=== PATIENT | female | born 1945 | race Caucasian/White ===

== ENCOUNTER 2016-04-26 11:08 | Emergency (ER) | payer OTHER ==
[2016-04-26 12:40] VITALS: BP 178/65
--- NOTE | 2016-04-26 14:36 | UC ---
Throat Pain/Nasal [place] HPI - HPI Summary HPI Summary: sore throat and headache with sinus pressure for one day; no fever. Also has increasing erythema around the right eye since she developed a reaction to a silicon plug placed in the tear duct, requiring removal. - History of Current Complaint Chief Complaint: UCGeneralIllness Stated Complaint: SORE THROAT Time Seen by Provider: 04/26/16 14:05 Hx Obtained From: Patient Onset/Duration: Gradual Onset, Lasting Days - 2 Severity: Moderate Cough: None Associated Signs & Symptoms: Positive: Dysphagia, Sinus Discomfort - Epiglottits Risk Factors Epiglottis Risk Factors: Negative - Allergies/Home Medications Allergies/Adverse Reactions: Allergies Allergy/AdvReac Type Severity Reaction Status Date / Time Penicillins [PCN] Allergy Severe Hives/Diff. Verified 12/25/15 10:32 Breathing/I tching Latex Allergy SKIN ON Verified 12/25/15 10:32 HANDS SPLIT AND BLEED Silicone Allergy Swelling Verified 04/26/16 12:40 PMH/Surg Hx/FS Hx/Imm Hx - Additional Past Medical History Additional PMH: history of atrial fibrillation Cardiovascular History Of: Reports: Cardiac Disorders - svt, Hypertension Denies: Pacemaker/ICD Respiratory History Of: Denies: COPD, Asthma GI/ History Of: Reports: Gastroesophageal Reflux Other History Of: Anticoagulant Therapy - aspirin - Surgical History Surgical History: Yes Surgery Procedure, Year, and Place: 09/2011 LEFT KNEE ARTHROSCOPY WITH PARTIAL MEDIAL MENISCECTOMY, 01/2011 REMOVAL [place] TWO MASSES [place] [facility] [place]ER[place], [facility],2006 RIGHT KNEE MENISCUS, [facility] SCAR TISSUE REMOVED FROM LEFT LUNG, [facility]. 1973 HYSTERECTOMY, [facility]. 1992 TWO GANGLION REMOVED FROM LEFT HAND, [facility]. 02/25/2012 LEFT KNEE TOTAL REPLACEMENT, [facility] [place]. cardiac ablation 02/2014 - Family History Known Family History: Positive: Hypertension - Social History Occupation: Employed Full-time Lives: With Family - about to have open heart surgery in a couple of weeks. Alcohol Use: Rare Substance Use Type: None Smoking Status (MU): Former Smoker Type: Cigarettes When Did the Patient Quit Smoking/Using Tobacco: 1986 - Immunization History Most Recent Influenza Vaccination: 01/2014 Review of Systems Constitutional: Fatigue Skin: Negative Eyes: Other - periorbital swelling and erythema, very itchy, since removal of silicone plug which she reacted to. Using hot compresses. Area around right eye is becoming more tender. No diplopia, no eye drainage. ENT: Sore Throat Respiratory: Negative Cardiovascular: Negative Gastrointestinal: Negative Genitourinary: Negative Motor: Negative Neurovascular: Negative Musculoskeletal: Negative Neurological: Headache Psychological: Negative All Other Systems Reviewed And Are Negative: Yes Physical Exam Triage Information Reviewed: Yes Appearance: Ill-Appearing - looks mildly unwell, distressed due to length of wait. Vital Signs: Initial Vital Signs Temp 98.1 F 04/26/16 12:35 Pulse 51 04/26/16 12:35 Resp 16 04/26/16 12:35 BP 178/65 04/26/16 12:35 Pulse Ox 97 04/26/16 12:35 Eye Exam: Other - mild swelling and erythema extending 3 cm below the right eye. Mild upper lid swelling and erythema. Normal eye movements without pain Eyes: Positive: Conjunctiva Clear ENT: Positive: Pharyngeal erythema, TMs normal Neck: Positive: Supple, Nontender, No Lymphadenopathy Respiratory: Positive: Lungs clear, Normal breath sounds Cardiovascular: Positive: RRR, No Murmur Musculoskeletal Exam: Normal Neurological Exam: Normal Psychological Exam: Normal Skin Exam: Other - periorbital erythema Throat Pain/Nasal Course/Dx - Course Course Of Treatment: cephalexin for both early pre-septal cellulitis and possible bacterial sinusitis. Reviewed pen allergy, which she recalls as mild, possibly rash. - Differential Dx/Diagnosis Differential Diagnosis/HQI/PQRI: Influenza, Sinusitis, Tonsillitis, URI, Other Provider Diagnoses: right preseptal cellulitisl eye. sinusitis. Discharge - Discharge Plan Condition: Stable Disposition: HOME Prescriptions: Cephalexin CAP* [Keflex 500 CAP*] 500 mg PO TID #30 cap Patient Education Materials: Cellulitis (ED), Sinusitis (ED) Forms: *Work Release Referrals: Elliot Figueroa DO [Primary Care Provider] - Additional Instructions: You have been prescribed cephalexin, which will both treat a sinus infection and the infection around the right eye. If you develop rash, please stop taking the medication, and call regarding a change of antibiotics. Continue use of aspirin for headache. Follow up if you are not improving in 3 days, or if you develop a fever.
== END 2016-04-26 14:41 | disposition home or self-care (01) ==
LOC: UCCORT 11:08
DX: J32.9 Chronic sinusitis, unspecified (principal); L03.213 Periorbital cellulitis; I47.1 Supraventricular tachycardia; Z79.82 Long term (current) use of aspirin; I10 Essential (primary) hypertension; I48.91 Unspecified atrial fibrillation; K21.9 Gastro-esophageal reflux disease without esophagitis; Z87.891 Personal history of nicotine dependence; Z88.0 Allergy status to penicillin; Z91.040 Latex allergy status; Z91.048 Other nonmedicinal substance allergy status; Z96.652 Presence of left artificial knee joint
CPT/HCPCS: 99212; G0463

== ENCOUNTER 2016-10-27 12:23 | Emergency (ER) | payer OTHER ==
[2016-10-27 12:36] VITALS: BP 146/62
--- NOTE | 2016-10-27 12:54 | UC ---
Respiratory Complaint HPI - HPI Summary HPI Summary: Sob--Needed to sleep sitting up last night , has had a fluttering feeling in chest, no edema - History of Current Complaint Chief Complaint: UCRespiratory Stated Complaint: SOB,COUGH Time Seen by Provider: 10/27/16 12:34 Hx Obtained From: Patient ?: No Onset/Duration: Sudden Onset, Lasting Days - 1, Still Present Timing: Constant Severity Initially: Moderate Severity Currently: Moderate Character: Cough: Nonproductive Aggravating Factors: Recumbent Position Alleviating Factors: Upright Position Associated Signs And Symptoms: Positive: Dyspnea. Negative: Fever, Chills, Pleuritic Chest Pain, URI, Nasal Congestion, Hoarseness - Allergies/Home Medications Allergies/Adverse Reactions: Allergies Allergy/AdvReac Type Severity Reaction Status Date / Time Penicillins [PCN] Allergy Severe Hives/Diff. Verified 10/27/16 12:35 Breathing/I tching Latex Allergy SKIN ON Verified 10/27/16 12:35 HANDS SPLIT AND BLEED Silicone Allergy Swelling Verified 10/27/16 12:35 Home Medications: Home Medications Aspirin TAB* [Aspirin 325 MG TAB*] 325 mg PO DAILY 10/27/16 [History Confirmed 10/27/16] Coenzyme Q10 (Ubidecarenone) [Co-Enzyme Q10] 100 mg PO DAILY 10/27/16 [History Confirmed 10/27/16] Flecainide TAB* [Tambocor TAB*] 100 mg PO BID 10/27/16 [History Confirmed ] Levothyroxine TAB* [Synthroid TAB*] 25 mcg PO DAILY 10/27/16 [History Confirmed 10/27/16] Metoprolol Tartrate TAB* [Lopressor TAB*] 75 mg PO BID 10/27/16 [History Confirmed 10/27/16] Valsartan/HCTZ 160/25(NF) [Diovan Hct 160/25(NF)] 1 tab PO DAILY 10/27/16 [ History Confirmed 10/27/16] amLODIPine TAB* [Norvasc 5 mg TAB*] 5 mg PO BID 10/27/16 [History Confirmed 08/08] PMH/Surg Hx/FS Hx/Imm Hx Previously Healthy: No Endocrine History: Hypothyroidism Cardiovascular History: Cardiac Disease, Hypertension, Pacemaker/ICD Other History Of: Anticoagulant Therapy - aspirin - Surgical History Surgical History: Yes Surgery Procedure, Year, and Place: 09/2011 LEFT KNEE ARTHROSCOPY WITH PARTIAL MEDIAL MENISCECTOMY, 01/2011 REMOVAL OF TWO MASSES ON LEFT THUMB, [facility] [place] HEART CATHERIZATION, [facility],2006 RIGHT KNEE MENISCUS, [facility] SCAR TISSUE REMOVED FROM LEFT LUNG, [facility]. 1973 HYSTERECTOMY, [facility]. 1992 TWO GANGLION REMOVED FROM LEFT HAND, [facility]. 02/25/2012 LEFT KNEE TOTAL REPLACEMENT, [facility] [place]. cardiac ablation 02/2014 - Family History Known Family History: Positive: Hypertension - Social History Occupation: Employed Full-time Lives: With Family Alcohol Use: Rare Substance Use Type: None Smoking Status (MU): Former Smoker Type: Cigarettes When Did the Patient Quit Smoking/Using Tobacco: 1986 - Immunization History Most Recent Influenza Vaccination: 01/2014 Review of Systems Constitutional: Fatigue Skin: Negative Eyes: Negative ENT: Negative Respiratory: Shortness Of Breath Cardiovascular: Negative Gastrointestinal: Negative Genitourinary: Negative Motor: Negative Neurovascular: Negative Musculoskeletal: Negative Neurological: Negative Psychological: Negative All Other Systems Reviewed And Are Negative: Yes Physical Exam Triage Information Reviewed: Yes Appearance: Well-Nourished, Ill-Appearing, Pain Distress, Other: - does repot weight loss Vital Signs: Initial Vital Signs Temp 98 F 10/27/16 12:26 Pulse 62 10/27/16 12:26 Resp 18 10/27/16 12:26 BP 146/62 10/27/16 12:26 Pulse Ox 100 10/27/16 12:26 Vital Signs Reviewed: Yes Eye Exam: Normal Eyes: Positive: Conjunctiva Clear ENT Exam: Normal ENT: Positive: Normal ENT inspection, Hearing grossly normal, Pharynx normal, TMs normal. Negative: Nasal congestion, Nasal drainage, Tonsillar swelling, Tonsillar exudate, Trismus, Muffled/hoarse voice Dental Exam: Normal Neck exam: Normal Neck: Positive: Supple, Nontender, No Lymphadenopathy Respiratory Exam: Normal Respiratory: Positive: Chest non-tender, Lungs clear, Normal breath sounds, No respiratory distress, No accessory muscle use Cardiovascular Exam: Normal Cardiovascular: Positive: RRR, No Murmur, Pulses Normal, Brisk Capillary Refill Musculoskeletal Exam: Normal Musculoskeletal: Positive: Strength Intact, ROM Intact, No Edema Neurological Exam: Normal Neurological: Positive: Alert, Muscle Tone Normal Psychological Exam: Normal Psychological: Positive: Normal Response To Family Skin Exam: Normal UC Diagnostic Evaluation - Laboratory O2 Sat by Pulse Oximetry: 100 - EKG Cardiac Rate: NL Cardiac Rhythm: Other Rhythm: Normal - paced Ectopy: None Respiratory Course/Dx - Course Course Of Treatment: dischardeg--refused ambulance plan to follow immediatly at [facility] - Differential Dx/Diagnosis Differential Diagnosis/HQI/PQRI: CHF, Pulmonary Edema, Other - angina Provider Diagnoses: SoB Fatigue - Physician Notification/Consults Discussed Patient Care With: Navdeep Garcia Time Discussed With Above Provider: 13:00 Discharge - Discharge Plan Condition: Guarded Disposition: AGAINST MEDICAL ADVICE Patient Education Materials: Dyspnea (ED) Referrals: Elliot Figueroa DO [Primary Care Provider] - Additional Instructions: Please report directly to Hospital for higher level of care
== END 2016-10-27 13:09 | disposition left against medical advice (07) ==
LOC: UCCORT 12:23
DX: R06.02 Shortness of breath (principal); R53.83 Other fatigue; Z91.040 Latex allergy status; Z88.0 Allergy status to penicillin; Z91.048 Other nonmedicinal substance allergy status; Z79.82 Long term (current) use of aspirin; E03.9 Hypothyroidism, unspecified; I10 Essential (primary) hypertension; Z95.810 Presence of automatic (implantable) cardiac defibrillator; Z87.891 Personal history of nicotine dependence
CPT/HCPCS: 93005; 99213; G0463

== ENCOUNTER 2017-07-13 10:44 | Emergency (ER) | payer MEDICARE, OTHER ==
[2017-07-13 11:23] VITALS: BP 151/72
--- NOTE | 2017-07-13 11:51 | UC ---
Respiratory Complaint HPI - History of Current Complaint Chief Complaint: UCRespiratory Stated Complaint: upper respritory Time Seen by Provider: 07/13/17 11:28 Pain Intensity: 6 - Allergies/Home Medications Allergies/Adverse Reactions: Allergies Allergy/AdvReac Type Severity Reaction Status Date / Time latex Allergy Rash Verified 07/13/17 11:16 Penicillins Allergy Hives Verified 07/13/17 11:16 silicone Allergy Swelling Verified 07/13/17 11:16 Home Medications: Home Medications Lupus Medication 1 tab PO DAILY 07/13/17 [History] PMH/Surg Hx/FS Hx/Imm Hx - Additional Past Medical History Additional PMH: Lupus Endocrine History: Hypothyroidism Cardiovascular History: Hypertension Other History Of: Anticoagulant Therapy - aspirin - Surgical History Surgical History: Yes Surgery Procedure, Year, and Place: 09/2011 LEFT KNEE ARTHROSCOPY WITH PARTIAL MEDIAL MENISCECTOMY, 01/2011 REMOVAL OF TWO MASSES ON LEFT THUMB, [facility] [place] 2007 HEART CATHERIZATION, [facility],2006 RIGHT KNEE MENISCUS, [facility] SCAR TISSUE REMOVED FROM LEFT LUNG, [facility]. 1973 HYSTERECTOMY, [facility]. 1992 TWO GANGLION REMOVED FROM LEFT HAND, [facility]. 02/25/2012 LEFT KNEE TOTAL REPLACEMENT, [facility] [place]. cardiac ablation 02/2014 - Family History Known Family History: Positive: Hypertension - Social History Occupation: Retired Lives: With Family Alcohol Use: Rare Substance Use Type: None Smoking Status (MU): Former Smoker Type: Cigarettes When Did the Patient Quit Smoking/Using Tobacco: 1986 - Immunization History Most Recent Influenza Vaccination: 01/2014 Review of Systems Constitutional: Fever, Chills Respiratory: Cough Musculoskeletal: Myalgia Is Patient Immunocompromised?: No All Other Systems Reviewed And Are Negative: Yes Physical Exam Triage Information Reviewed: Yes Appearance: Well-Nourished, Ill-Appearing Vital Signs: Initial Vital Signs Temp 100.2 F 07/13/17 11:18 Pulse 96 07/13/17 11:18 Resp 20 07/13/17 11:18 BP 151/72 07/13/17 11:18 Pulse Ox 97 07/13/17 11:18 Vital Signs Reviewed: Yes Eyes: Positive: Conjunctiva Inflamed ENT: Positive: Pharynx normal, TMs normal Neck exam: Normal Respiratory: Positive: Lungs clear Cardiovascular Exam: Normal Musculoskeletal Exam: Normal Neurological Exam: Normal Psychological Exam: Normal Skin Exam: Normal UC Diagnostic Evaluation - Laboratory O2 Sat by Pulse Oximetry: 97 Respiratory Course/Dx - Differential Dx/Diagnosis Differential Diagnosis/HQI/PQRI: Exacerbation Of COPD, Influenza, Laryngitis, Lower Resp Infection Provider Diagnoses: Acute URI. Probable influenza Discharge - Sign-Out/Discharge Documenting (check all that apply): Discharge - Discharge Plan Condition: Stable Disposition: HOME Prescriptions: Oseltamivir CAP* [Tamiflu CAP*] 75 mg PO BID #10 cap Patient Education Materials: Influenza (ED), Oseltamivir (By mouth) Referrals: Too Munguia MD [Primary Care Provider] - - Billing Disposition and Condition Condition: STABLE Disposition: HOME
[2017-07-13] MEDS ORDERED: Ibuprofen TAB* 600 MG PO ONE (12:11)
== END 2017-07-13 12:25 | disposition home or self-care (01) ==
LOC: UCCORT 10:44
DX: J06.9 Acute upper respiratory infection, unspecified (principal); F17.210 Nicotine dependence, cigarettes, uncomplicated
CPT/HCPCS: 87502; 99212; A9270-GY; G0463

== ENCOUNTER 2018-10-07 10:44 | Emergency (ER) | payer MEDICARE ==
[2018-10-07 11:37] VITALS: BP 139/68
--- NOTE | 2018-10-07 12:09 | UC ---
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 Negative: Nausea, Vomiting, Numbness, Fever, Chills, Cough, Wheezing, Chest Pain, Lightheadedness, Drainage , Bruising, Tenderness, Red Streaks, Joint Swelling - Allergy/Home Medications Allergies/Adverse Reactions: Allergies Allergy/AdvReac Type Severity Reaction Status Date / Time adhesive Allergy Rash Verified 10/07/18 11:22 chlorhexidine Allergy Hives Verified 10/07/18 11:22 [From Hibiclens] latex Allergy Rash Verified 10/07/18 11:22 Penicillins Allergy Hives Verified 10/07/18 11:22 silicone Allergy Swelling Verified 10/07/18 11:22 vinyl Allergy Unknown rash, Uncoded 10/07/18 11:22 itching Home Medications: Home Medications Hydrocortisone 1% CREAM(NF) [Hytone Cream 1%*] 1 applic TOPICAL PRN 10/07/18 [ History] Valsartan TAB* [Diovan TAB*] 40 mg PO DAILY 10/07/18 [History Confirmed 10/07/18 ] PMH/Surg Hx/FS Hx/Imm Hx - Additional Past Medical History Additional PMH: lupus Cardiovascular History: Cardiac Disease, Hypertension, Pacemaker/ICD, Atrial Fibrillation GI/ History: Ulcer Other History Of: Anticoagulant Therapy - aspirin - Surgical History Surgical History: Yes Surgery Procedure, Year, and Place: 09/2011 LEFT KNEE ARTHROSCOPY WITH PARTIAL MEDIAL MENISCECTOMY, 01/2011 REMOVAL OF TWO MASSES ON LEFT THUMB, [facility] 2007 HEART CATHERIZATION, [facility],2006 RIGHT KNEE MENISCUS, [facility] SCAR TISSUE REMOVED FROM LEFT LUNG, [facility]. 1973 HYSTERECTOMY, [facility]. 1992 TWO GANGLION REMOVED FROM LEFT HAND, [facility]. 02/25/2012 LEFT KNEE TOTAL REPLACEMENT, [facility] [place]. cardiac ablation 02/2014. 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 ACDF, MAR 2018 - Family History Known Family History: Positive: Hypertension - Social History Alcohol Use: Rare Substance Use Type: None Smoking Status (MU): Former Smoker Type: Cigarettes When Did the Patient Quit Smoking/Using Tobacco: 1986 - Immunization History Most Recent Influenza Vaccination: 01/2014 Review of Systems All Other Systems Reviewed And Are Negative: Yes Constitutional: Positive: Negative Skin: Positive: Rash Eyes: Positive: Negative ENT: Positive: Negative Respiratory: Positive: Negative Is Patient Immunocompromised?: No Physical Exam Triage Information Reviewed: Yes Appearance: Well-Appearing, No Pain Distress, Well-Nourished Vital Signs: Initial Vital Signs Temp 98.6 F 10/07/18 11:27 Pulse 86 10/07/18 11:27 Resp 20 10/07/18 11:27 BP 139/68 10/07/18 11:27 Pulse Ox 99 10/07/18 11:27 Vital Signs Reviewed: Yes Eye Exam: Normal Eyes: Positive: Conjunctiva Clear ENT: Positive: Normal ENT inspection, Hearing grossly normal, Pharynx normal Neck exam: Normal Neck: Positive: Supple, Nontender, No Lymphadenopathy Respiratory: Positive: Chest non-tender, Lungs clear, Normal breath sounds Cardiovascular: Positive: RRR, No Murmur, Pulses Normal Skin: Positive: Rashes - petichea / stasis dermatitis bilateral lower leg Course/Dx - Diagnoses Provider Diagnosis: Stasis dermatitis Discharge - Sign-Out/Discharge Documenting (check all that apply): Patient Departure All imaging exams completed and their final reports reviewed: No Studies - Discharge Plan Condition: Stable Disposition: HOME Patient Education Materials: Stasis Dermatitis (DC) Referrals: Meg Smith MD [Primary Care Provider] - 7 Days Additional Instructions: rest, elevate you legs, may use compression stocking, do not stand for long hrs - Billing Disposition and Condition Condition: STABLE Disposition: Home
[2018-10-07 19:37] LABS: ABS Basophils 0.1 10^3/ul (0-0.2); ABS Eosinophils 0.1 10^3/ul (0-0.6); ABS Lymphocytes 1.5 10^3/ul (1.0-4.8); ABS Monocytes 0.7 10^3/ul (0-0.8); ABS Neutrophils 4.5 10^3/ul (1.5-7.7); Eosinophil % 2.2 %; Hematocrit 37 % (35-47); Hemoglobin 12.7 g/dL (12.0-16.0); Lymphocyte % 21.6 %; Mean Corpuscular HGB Conc 34 g/dL (31-36); Mean Corpuscular Hemoglobin 30 pg (27-31); Mean Corpuscular Volume 86 fL (80-97); Mean Platelet Volume 9.9 fL (7.4-10.4); Nucleated Red Blood Cells % 0.2; Platelet Count 230 10^3/uL (150-450); Red Blood Count 4.31 10^6 /uL (3.70-4.87); Red Cell Distribution Width 15 % (10-15); White Blood Count 6.9 10^3/uL (3.5-10.8)
[2018-10-07 19:42] LABS: INR 1.23 (0.82-1.09)
[2018-10-07 19:44] LABS: Albumin 4.4 g/dL (3.2-5.2); Calcium 9.6 mg/dL (8.6-10.3); Potassium 3.9 mmol/L (3.5-5.0); Total Bilirubin 0.6 mg/dL (0.2-1.0)
[2018-10-07 19:50] LABS: Albumin/Globulin Ratio 1.5 (1-3); BUN/Creatinine Ratio 12.9 (8-20); EGFR African American 44.4 (>60); EGFR Non-African American 36.7 (>60); Globulin 2.9 g/dL (2-4); Total Protein 7.3 g/dL (6.4-8.9)
--- NOTE | 2018-10-08 07:46 | UC ---
- Progress Note Progress Note: Laboratory results come back from 07 October 2018. Creatinine is elevated at 1.4, phosphatase elevated at 118 and INR slightly elevated at 1.23. These are all mild elevations however in reviewing prior lab data that we have access to these are all the first time these have been elevated compared to prior records. Nursing to call patient inform them of these findings. If the patient feels well they are to follow up with her primary care physician to have all these rechecked. If the patient is worse she needs to get further evaluation emergency Department Course/Dx - Diagnoses Provider Diagnoses: Stasis dermatitis Discharge - Sign-Out/Discharge Documenting (check all that apply): Patient Departure All imaging exams completed and their final reports reviewed: No Studies - Discharge Plan Condition: Stable Disposition: HOME Patient Education Materials: Stasis Dermatitis (DC) Referrals: Meg Smith MD [Primary Care Provider] - 7 Days Additional Instructions: rest, elevate you legs, may use compression stocking, do not stand for long hrs - Billing Disposition and Condition Condition: STABLE Disposition: Home
== END 2018-10-07 12:31 | disposition home or self-care (01) ==
LOC: UCCORT 10:44
DX: I87.2 Venous insufficiency (chronic) (peripheral) (principal); I11.9 Hypertensive heart disease without heart failure; I48.91 Unspecified atrial fibrillation; Z79.82 Long term (current) use of aspirin; Z87.891 Personal history of nicotine dependence; Z95.810 Presence of automatic (implantable) cardiac defibrillator
CPT/HCPCS: 36415; 80053; 85025; 85610; 99211; G0463

== ENCOUNTER 2018-12-21 10:57 | Emergency (ER) | payer MEDICARE ==
[2018-12-21 12:28] VITALS: BP 150/80
--- NOTE | 2018-12-21 12:38 | UC ---
Lower Extremity/Ankle HPI - HPI Summary HPI Summary: Pt presents with c/o right lateral thigh pain that radiates from hip to knee, lateral aspect. Pt denies injury or hx of clotting disorder. Pt states that she is "on her feet for 8 hours a time" at work. 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 - History of Current Complaint Chief Complaint: UCLowerExtremity Stated Complaint: RT LEG COMPLAINT Time Seen by Provider: 12/21/18 12:29 Hx Obtained From: Patient ?: No Onset/Duration: Sudden Onset, Lasting Days, Still Present Severity Initially: Moderate Severity Currently: Moderate Pain Intensity: 8 Aggravating Factor(s): Standing Alleviating Factor(s): Nothing Able to Bear Weight: Yes - painful - Risk Factors Gout Risk Factors: Age Over 40 DVT Risk Factors: Negative Septic Arthritis Risk Factor: Negative - Allergies/Home Medications Allergies/Adverse Reactions: Allergies Allergy/AdvReac Type Severity Reaction Status Date / Time adhesive Allergy Rash Verified 12/21/18 12:20 chlorhexidine Allergy Hives Verified 12/21/18 12:20 [From Hibiclens] latex Allergy Rash Verified 12/21/18 12:20 Penicillins Allergy Hives Verified 12/21/18 12:20 silicone Allergy Swelling Verified 12/21/18 12:20 vinyl Allergy Unknown rash, Uncoded 12/21/18 12:20 itching Home Medications: Home Medications Acetaminophen [Acetaminophen Extra Strength] 500 mg PO Q4H PRN 12/21/18 [ History Confirmed 12/21/18] Ibuprofen TAB* [Advil TAB*] 400 mg PO Q6H PRN 12/21/18 [History Confirmed ] PMH/Surg Hx/FS Hx/Imm Hx Previously Healthy: Yes Cardiovascular History: Cardiac Disease, Hypertension Other History Of: Anticoagulant Therapy - aspirin - Surgical History Surgical History: Yes Surgery Procedure, Year, and Place: 09/2011 LEFT KNEE ARTHROSCOPY WITH PARTIAL MEDIAL MENISCECTOMY, 01/2011 REMOVAL OF TWO MASSES ON LEFT THUMB, [facility] [place] 2007 HEART CATHERIZATION, [facility],2006 RIGHT KNEE MENISCUS, [facility] SCAR TISSUE REMOVED FROM LEFT LUNG, [facility]. 1973 HYSTERECTOMY, [facility]. 1992 TWO GANGLION REMOVED FROM LEFT HAND, [facility]. 02/25/2012 LEFT KNEE TOTAL REPLACEMENT, [facility] [place]. cardiac ablation 02/2014. 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 ACDF, MAR 2018 - Family History Known Family History: Positive: Hypertension - Social History Occupation: Employed Full-time Lives: With Family Alcohol Use: Rare Substance Use Type: None Smoking Status (MU): Former Smoker Type: Cigarettes Have You Smoked in the Last Year: No When Did the Patient Quit Smoking/Using Tobacco: 1986 - Immunization History Most Recent Influenza Vaccination: 01/2014 Vaccination Up to Date: Yes Review of Systems All Other Systems Reviewed And Are Negative: Yes Constitutional: Positive: Negative Skin: Positive: Negative Eyes: Positive: Negative ENT: Positive: Negative Respiratory: Positive: Negative Cardiovascular: Positive: Negative Gastrointestinal: Positive: Negative Genitourinary: Positive: Negative Motor: Positive: Negative Neurovascular: Positive: Negative Musculoskeletal: Positive: Myalgia - right lateral thig Neurological: Positive: Negative Psychological: Positive: Negative Is Patient Immunocompromised?: No Physical Exam Triage Information Reviewed: Yes Appearance: Pain Distress - with PE, Thin Vital Signs: Initial Vital Signs Temp 98.1 F 12/21/18 12:17 Pulse 75 12/21/18 12:17 Resp 18 12/21/18 12:17 BP 150/80 12/21/18 12:17 Pulse Ox 100 12/21/18 12:17 Vital Signs Reviewed: Yes Eye Exam: Normal ENT: Positive: Hearing grossly normal Dental Exam: Normal Neck exam: Normal Respiratory: Positive: No respiratory distress Musculoskeletal: Positive: Other: - pain with palpation, right lateral thigh from right ip to right lateral knee Neurological Exam: Normal Psychological Exam: Normal Skin Exam: Normal Lower Extremity Course/Dx - Differential Dx/Diagnosis Differential Diagnosis/HQI/PQRI: Cellulitis, DVT, Gout, Infection, Phlebitis, Sciatica, Strain, Tendonitis Provider Diagnosis: Iliotibial band syndrome of right side Discharge ED - Sign-Out/Discharge Documenting (check all that apply): Patient Departure All imaging exams completed and their final reports reviewed: No Studies - Discharge Plan Condition: Stable Disposition: HOME Patient Education Materials: Iliotibial Band Syndrome (ED) Referrals: Meg Smith MD [Primary Care Provider] - If Needed Additional Instructions: Please follow up with your PCP as needed. If your symptoms do not improve, please seek care at the closest healthcare facility as soon as possible. - Billing Disposition and Condition Condition: STABLE Disposition: Home
== END 2018-12-21 12:49 | disposition home or self-care (01) ==
LOC: UCCORT 10:57
DX: M76.31 Iliotibial band syndrome, right leg (principal); I10 Essential (primary) hypertension; Z91.09 Other allergy status, other than to drugs and biological substances; Z88.8 Allergy status to other drugs, medicaments and biological substances; Z91.040 Latex allergy status; Z88.0 Allergy status to penicillin; Z87.891 Personal history of nicotine dependence
CPT/HCPCS: 99211; G0463

== ENCOUNTER 2022-08-06 17:38 | Inpatient (IN) ==
[2022-08-06] MEDS ORDERED: Lactated Ringers 1000 ml BAG 1,000 ML IV ONE ×2 (19:58→21:44)
[2022-08-06 20:44] LABS: ABS Basophils 0.1 10^3/uL (0.0-0.1); ABS Eosinophils 0.1 10^3/uL (0.0-0.5); ABS Lymphocytes 1.8 10^3/uL (1.0-4.8); ABS Monocytes 1.3 10^3/uL (0.0-0.9); ABS Neutrophils 10.4 10^3/uL (1.5-7.6); ABS Nucleated RBC 0.01 10^3/ul; Hematocrit 28.6 % (35-45); Hemoglobin 9.6 g/dL (11.5-14.3); Lymphocyte % 13.3 %; Mean Corpuscular Hemoglobin 29.3 pg (27-33); Mean Corpuscular Hgb Conc 33.6 g/dL (31-36); Mean Corpuscular Volume 87.3 fL (80-97); Mean Platelet Volume 7.7 fL (7.5-11.2); Platelet Count 437 10^3/uL (150-450); Red Blood Count 3.28 10^6/uL (3.63-4.92); Red Cell Distribution Width 13.6 % (12-17); White Blood Count 13.8 10^3/uL (3.8-11.8)
[2022-08-06 21:13] LABS: Albumin 3.4 g/dL (3.2-5.2); Albumin/Globulin Ratio 1.3 (1-3); C Reactive Protein 51.36 mg/L (<8.01); Calcium 8.6 mg/dL (8.6-10.3); Creatinine, Serum 1.43 mg/dL (0.51-0.95); Globulin 2.7 g/dL (2-4); Potassium 4.6 mmol/L (3.5-5.0); Total Protein 6.1 g/dL (6.4-8.9); eGFR CKD-EPI 37.5 (>60)
[2022-08-06] MEDS ORDERED: Morphine 4 MG/ML VIAL (1 ml) IV ONE (21:43)
[2022-08-06] MEDS ORDERED: Ondansetron 4 mg VIAL 2 MG/ML 2 ml VIAL IV ONE (21:43)
[2022-08-06] MEDS ORDERED: Iohexol 350 (CONTRAST) 500 ML MDV IV ONE (21:50)
[2022-08-06] MEDS ORDERED: Cefepime 2 GM in Dextrose 2 GM/50 ML BAG IV ONE (21:54)
[2022-08-06 22:09] LABS: Erythrocyte Sed Rate 50 mm/Hr (0-29)
[2022-08-06] MEDS ORDERED: Vancomycin 1,250 MG in NS 0.9% 250 ml 250 ML IVPB ONE (22:30)
[2022-08-06 22:37] LABS: Urine Appearance Cloudy; Urine Bilirubin Negative (Negative); Urine Blood Negative (Negative); Urine Color Yellow; Urine Glucose Negative (Negative); Urine Ketones Negative (Negative); Urine Nitrite Negative (Negative); Urine Protein Negative (Negative); Urine Specific Gravity 1.004 (1.002-1.030); Urine Urobilinogen Negative (Negative)
[2022-08-06] MEDS ORDERED: Iodixanol (CONTRAST) 320 MG/ML 100 ML SDV IV ONE (22:40)
[2022-08-07] MEDS ORDERED: Vancomycin per Pharmacy 1 EA NOTE FOLLOW UP SCH (03:00)
[2022-08-07] MEDS ORDERED: Lactated Ringers 1000 ml BAG 1,000 ML IV SCH (04:00)
[2022-08-07 04:46] LABS: Calcium 8.1 mg/dL (8.6-10.3); Creatinine, Serum 1.19 mg/dL (0.51-0.95); Magnesium 1.7 mg/dL (1.9-2.7); Potassium 3.9 mmol/L (3.5-5.0); eGFR CKD-EPI 46.8 (>60)
[2022-08-07] MEDS ORDERED: Magnesium Sulfate 2 gm BAG 2 GM/50 ML BAG IVPB ONE (05:02)
[2022-08-07 05:07] LABS: ABS Basophils 0.1 10^3/uL (0.0-0.1); ABS Eosinophils 0.2 10^3/uL (0.0-0.5); ABS Lymphocytes 2.2 10^3/uL (1.0-4.8); ABS Monocytes 1.3 10^3/uL (0.0-0.9); ABS Neutrophils 8.1 10^3/uL (1.5-7.6); ABS Nucleated RBC 0.01 10^3/ul; Eosinophil % 1.9 %; Hematocrit 24.9 % (35-45); Hemoglobin 8.2 g/dL (11.5-14.3); Lymphocyte % 18.3 %; Mean Corpuscular Hemoglobin 28.8 pg (27-33); Mean Corpuscular Hgb Conc 32.9 g/dL (31-36); Mean Corpuscular Volume 87.6 fL (80-97); Mean Platelet Volume 7.9 fL (7.5-11.2); Nucleated Red Blood Cells % 0.1 /100 WBC (0.0-0.4); Platelet Count 355 10^3/uL (150-450); Red Blood Count 2.85 10^6/uL (3.63-4.92); Red Cell Distribution Width 13.4 % (12-17); White Blood Count 11.8 10^3/uL (3.8-11.8)
[2022-08-07] MEDS ORDERED: Morphine 2 MG/ML SYRINGE IV ONE (07:33)
[2022-08-07 08:22] LABS: Body Fluid WBC 2338 /mcL
[2022-08-07 09:12] LABS: Body Fluid Mono 20 %; Body Fluid Total Cells Counted 200
[2022-08-07 09:13] LABS: Body Fluid Appearance Bloody; Body Fluid Color Red; Body Fluid Source Synovial Fluid
[2022-08-07] MEDS ORDERED: cefTRIAXone 1 gm/50 mL D5W 1 GM/50 ML BAG IV SCH (09:30)
[2022-08-07] MEDS ORDERED: Cefepime 1 GM in Dextrose 1 GM/50 ML BAG IV SCH (10:00)
[2022-08-07] MEDS ORDERED: Vancomycin Random Level NOTE FOLLOW UP ONE (11:00)
[2022-08-07] MEDS ORDERED: Vancomycin 1000 MG in NS 0.9% 250 ML IVPB SCH (14:00)
[2022-08-07 15:24] LABS: Ferritin 155.9 ng/mL (11-307)
[2022-08-07] MEDS ORDERED: Enoxaparin 40 MG/0.4 ML SYR SUBCUT ONE (17:00)
[2022-08-07] MEDS: Acetaminop/Codeine 300mg/30mg TAB PO PRN (20:40)
[2022-08-08] MEDS ORDERED: Glycerin ADULT 2.4 gm SUPP PR PRN (08:29)
[2022-08-08] MEDS ORDERED: Metoprolol Tartrate 5 mg VIAL 5 ml VIAL (1 mg/ml) IV PRN (09:51)
[2022-08-08 10:06] LABS: ABS Basophils 0.2 10^3/uL (0.0-0.1); ABS Eosinophils 0.2 10^3/uL (0.0-0.5); ABS Lymphocytes 1.4 10^3/uL (1.0-4.8); ABS Monocytes 1.4 10^3/uL (0.0-0.9); ABS Neutrophils 19.1 10^3/uL (1.5-7.6); ABS Nucleated RBC 0.01 10^3/ul; Hematocrit 28.9 % (35-45); Hemoglobin 9.5 g/dL (11.5-14.3); Lymphocyte % 6.3 %; Mean Corpuscular Hemoglobin 28.9 pg (27-33); Mean Corpuscular Volume 87.7 fL (80-97); Mean Platelet Volume 7.6 fL (7.5-11.2); Platelet Count 445 10^3/uL (150-450); Red Cell Distribution Width 13.6 % (12-17); White Blood Count 22.3 10^3/uL (3.8-11.8)
[2022-08-08] MEDS: cefTRIAXone 1 gm/50 mL D5W 1 GM/50 ML BAG IV SCH (10:12)
[2022-08-08 10:51] LABS: C Reactive Protein 107.87 mg/L (<8.01); Calcium 8.5 mg/dL (8.6-10.3); Magnesium 1.9 mg/dL (1.9-2.7)
[2022-08-08] MEDS ORDERED: Magnesium Sulfate 2 gm BAG 2 GM/50 ML BAG IVPB ONE (11:05)
[2022-08-08 11:32] LABS: Creatinine, Serum 1.12 mg/dL (0.51-0.95); eGFR CKD-EPI 50.3 (>60)
[2022-08-08 11:39] LABS: High Sensitivity Troponin 1 Hr 17 pg/mL (<15)
[2022-08-08] MEDS: Vancomycin 1000 MG in NS 0.9% 250 ML IVPB SCH (15:07)
[2022-08-08] MEDS ORDERED: Enoxaparin 40 MG/0.4 ML SYR SUBCUT SCH (18:00)
[2022-08-09] MEDS: Acetaminop/Codeine 300mg/30mg TAB PO PRN (03:19)
[2022-08-09 05:48] LABS: ABS Basophils 0.1 10^3/uL (0.0-0.1); ABS Eosinophils 0.3 10^3/uL (0.0-0.5); ABS Lymphocytes 0.9 10^3/uL (1.0-4.8); ABS Monocytes 1.3 10^3/uL (0.0-0.9); ABS Neutrophils 13.4 10^3/uL (1.5-7.6); Eosinophil % 1.8 %; Hematocrit 24.2 % (35-45); Hemoglobin 8.1 g/dL (11.5-14.3); Lymphocyte % 5.8 %; Mean Corpuscular Hemoglobin 29.2 pg (27-33); Mean Corpuscular Hgb Conc 33.3 g/dL (31-36); Mean Corpuscular Volume 87.6 fL (80-97); Mean Platelet Volume 7.4 fL (7.5-11.2); Platelet Count 336 10^3/uL (150-450); Red Blood Count 2.76 10^6/uL (3.63-4.92); Red Cell Distribution Width 13.7 % (12-17)
[2022-08-09 06:15] LABS: C Reactive Protein 114.34 mg/L (<8.01); Calcium 7.9 mg/dL (8.6-10.3); Creatinine, Serum 1.06 mg/dL (0.51-0.95); Magnesium 2.2 mg/dL (1.9-2.7); Potassium 3.7 mmol/L (3.5-5.0); eGFR CKD-EPI 53.8 (>60)
[2022-08-09] MEDS ORDERED: Potassium Chlor 20 meq TAB.ER PO ONE (07:37)
[2022-08-09] MEDS: cefTRIAXone 1 gm/50 mL D5W 1 GM/50 ML BAG IV SCH (09:49)
[2022-08-09] MEDS ORDERED: Prochlorperazine 5 mg/ml 2 ml VIAL (10 mg) IV ONE (13:29)
[2022-08-09] MEDS: Vancomycin 1000 MG in NS 0.9% 250 ML IVPB SCH (14:00)
[2022-08-10 06:51] LABS: Hematocrit 25.1 % (35-45); Hemoglobin 8.5 g/dL (11.5-14.3); Mean Corpuscular Hemoglobin 29.8 pg (27-33); Mean Corpuscular Volume 87.6 fL (80-97); Mean Platelet Volume 7.8 fL (7.5-11.2); Platelet Count 341 10^3/uL (150-450); Red Blood Count 2.87 10^6/uL (3.63-4.92); Red Cell Distribution Width 13.9 % (12-17); White Blood Count 16.5 10^3/uL (3.8-11.8)
[2022-08-10 07:00] LABS: C Reactive Protein 134.92 mg/L (<8.01); Calcium 8.3 mg/dL (8.6-10.3); Creatinine, Serum 0.93 mg/dL (0.51-0.95); eGFR CKD-EPI 62.9 (>60)
[2022-08-10 07:31] LABS: RBC Morphology Normal (Normal)
[2022-08-10 07:32] LABS: ABS Basophils 0.1 10^3/uL (0.0-0.1); ABS Eosinophils 0.3 10^3/uL (0.0-0.5); ABS Lymphocytes 1.2 10^3/uL (1.0-4.8); ABS Monocytes 1.6 10^3/uL (0.0-0.9); ABS Neutrophils 13.3 10^3/uL (1.5-7.6); ABS Nucleated RBC 0.01 10^3/ul; Eosinophil % 1.8 %; Lymphocyte % 7.6 %
[2022-08-10] MEDS ORDERED: Iohexol 350 (CONTRAST) 500 ML MDV IV ONE (10:48)
[2022-08-10] MEDS ORDERED: Vancomycin Trough Check NOTE FOLLOW UP ONE (13:30)
[2022-08-10] MEDS: Acetaminop/Codeine 300mg/30mg TAB PO PRN (20:26)
[2022-08-11] MEDS: Acetaminop/Codeine 300mg/30mg TAB PO PRN (04:39)
[2022-08-11 06:31] LABS: ABS Basophils 0.1 10^3/uL (0.0-0.1); ABS Eosinophils 0.3 10^3/uL (0.0-0.5); ABS Lymphocytes 0.9 10^3/uL (1.0-4.8); ABS Monocytes 1.4 10^3/uL (0.0-0.9); ABS Neutrophils 9.8 10^3/uL (1.5-7.6); ABS Nucleated RBC 0.01 10^3/ul; Eosinophil % 2.1 %; Hematocrit 23.6 % (35-45); Hemoglobin 8.1 g/dL (11.5-14.3); Mean Corpuscular Hemoglobin 29.5 pg (27-33); Mean Corpuscular Hgb Conc 34.3 g/dL (31-36); Mean Corpuscular Volume 86.2 fL (80-97); Mean Platelet Volume 7.8 fL (7.5-11.2); Platelet Count 337 10^3/uL (150-450); Red Blood Count 2.74 10^6/uL (3.63-4.92); Red Cell Distribution Width 13.7 % (12-17); White Blood Count 12.5 10^3/uL (3.8-11.8)
[2022-08-11 06:46] LABS: C Reactive Protein 119.77 mg/L (<8.01); Calcium 8.2 mg/dL (8.6-10.3); Creatinine, Serum 0.89 mg/dL (0.51-0.95); Potassium 4.1 mmol/L (3.5-5.0); eGFR CKD-EPI 66.3 (>60)
[2022-08-11 14:38] VITALS: BP 129/62
== END 2022-08-11 15:16 | disposition home or self-care (01) | DRG 919 ==
LOC: ED 17:38 → EDHOLD 17:38 → SUATTDRO 08-07 01:23 → EDHOLD 08-07 16:02 → MEDTELE 08-07 16:55
PROVIDERS: ADMIT Internal Medicine; ATTEND Internal Medicine